=== PATIENT | male | born 1945 | race Caucasian/White ===

== ENCOUNTER 2020-03-04 11:11 | Inpatient (IN) | payer OTHER ==
[2020-03-04] MEDS ORDERED: SODIUM CHLORIDE 1,000 ML IV STA (11:56)
[2020-03-04 12:49] LABS: BASO % 0.2 % (0-2.0); HEMATOCRIT 21.4 % (35.4-49); LYMPH % 9.8 % (8-40); MCH 31.6 pg (25.7-33.7); MCHC 32.8 g/dl (32.0-35.9); MEAN CELL VOLUME 96.5 fl (80-96); MEAN PLT VOLUME 8.3 fl (7.5-11.1); MONO % 4.6 % (3.8-10.2); NEUT % 85.4 % (42.8-82.8); PLATELET COUNT 402 K/MM3 (134-434); RBC 2.21 M/mm3 (4.00-5.60); RDW 18.4 % (11.9-15.9); WHITE BLOOD COUNT 5.2 K/mm3 (4.0-10.0)
[2020-03-04 12:54] LABS: INR 1.4 (0.83-1.09); PROTHROMBIN TIME (PATIENT) 17.1 SEC (9.7-13.0)
[2020-03-04 12:56] LABS: ACTIVATED PTT 28.7 SECONDS (25.2-36.5)
[2020-03-04] MEDS ORDERED: VANCOMYCIN 1 GM in D5W (PRE-DOCKED) 1,000 MG/250 ML IVPB ONE (13:00)
[2020-03-04] MEDS ORDERED: PIPERACILLIN/TAZOB 4.5 GM 4.5 GM in DEXTROSE 5%-WATER 100 ML IVPB ONE (13:01)
[2020-03-04 13:11] LABS: CALCIUM 7.8 mg/dL (8.5-10.1); VENOUS BASE EXCESS -6.7 mmol/L (-2-2); VENOUS O2 SATURATION 15.5 % (70-80); VENOUS PCO2 50.6 mmHg (38-52); VENOUS PH 7.224 (7.310-7.410)
[2020-03-04 13:12] LABS: ALBUMIN 2.4 g/dl (3.4-5.0)
[2020-03-04 13:15] LABS: CREATININE 4.9 mg/dL (0.55-1.3)
[2020-03-04 13:16] LABS: BILIRUBIN,TOTAL 0.9 mg/dL (0.2-1); TOT PROT 6.8 g/dl (6.4-8.2)
[2020-03-04 13:27] LABS: POTASSIUM 6.7 mmol/L (3.5-5.1)
[2020-03-04 13:28] LABS: BLOOD UREA NITROGEN 125.5 mg/dL (7-18)
[2020-03-04] MEDS ORDERED: INSULIN REGULAR HUMAN 100 UNITS/ML *VIAL IVPUSH ONE (13:31)
[2020-03-04] MEDS ORDERED: DEXTROSE 50%-WATER - 25 GM/50 ML VIAL IVPUSH ONE ×3 (13:31→23:37)
[2020-03-04] MEDS ORDERED: SODIUM ZIRCONIUM CYCLOSILICATE (LOKELMA) 5 GM PACKET PO SCH (13:37)
[2020-03-04] MEDS ORDERED: PIPERACILLIN/TAZOB 4.5 GM 4.5 GM/100 ML BAG IVPB ONE (13:38)
[2020-03-04] MEDS ORDERED: VANCOMYCIN 1 GRAM (PRE-DOCKED) 1,000 MG/250 ML BAG IVPB ONE (13:39)
[2020-03-04] MEDS ORDERED: SODIUM ZIRCONIUM CYCLOSILICATE (LOKELMA) 5 GM PACKET PO ONE (13:45)
[2020-03-04] MEDS ORDERED: DEXTROSE 50%-WATER 25 GM/50 ML DISP.SYRIN ONE ×2 (13:53→23:01)
[2020-03-04] MEDS ORDERED: SODIUM ZIRCONIUM CYCLOSILICATE (LOKELMA) 10 GM PACKET PO ONE (14:00)
[2020-03-04] MEDS ORDERED: CALCIUM GLUCONATE 10% - 1,000 MG/10 ML VIAL IVPB ONE (15:01)
[2020-03-04] MEDS ORDERED: CALCIUM GLUCONATE 10% - 1,000 MG/10 ML VIAL ONE (15:18)
[2020-03-04] MEDS ORDERED: DEXTROSE 5%-0.45% SALINE 1,000 ML IV SCH ×2 (15:45→17:29)
[2020-03-04] MEDS ORDERED: SODIUM BICARBONATE 650 MG TABLET PO ONE (15:55)
[2020-03-04] MEDS ORDERED: ALBUTEROL SO4 0.083% IH SOL 2.5 MG/3 ML VIAL.NEB. NEB ONE (15:57)
[2020-03-04 16:19] LABS: EPI CELLS 4 /uL (0-25.1); HYALINE CASTS 1 /uL (0-3.1); URINE APPEARANCE CLEAR; URINE BACTERIA 8 /uL (0-1359); URINE BILIRUBIN NEGATIVE (NEGATIVE); URINE COLOR YELLOW; URINE GLUCOSE (UA) NEGATIVE (NEGATIVE); URINE KETONE NEGATIVE (NEGATIVE); URINE LEUK ESTERASE NEGATIVE (NEGATIVE); URINE NITRITE NEGATIVE (NEGATIVE); URINE PROTEIN 1+ (NEGATIVE); URINE UROBILINOGEN 0.2 mg/dL (0.2-1.0); URINE WBC 5 /uL (0-25.8)
[2020-03-04 16:59] LABS: URINE RBC 40.3 /uL (0-23.9)
[2020-03-04 17:03] LABS: MAGNESIUM 1.8 mg/dL (1.8-2.4)
[2020-03-04 17:06] LABS: PHOSPHOROUS 7.7 mg/dL (2.5-4.9)
[2020-03-04 17:10] LABS: N-TERMINAL BNP 4277.5 pg/ml (5-450)
[2020-03-04 22:47] LABS: POTASSIUM 4.7 mmol/L (3.5-5.1)
[2020-03-04 22:49] LABS: CALCIUM 7.6 mg/dL (8.5-10.1)
[2020-03-04 22:50] LABS: ALBUMIN 2.2 g/dl (3.4-5.0)
[2020-03-04 22:53] LABS: CREATININE 4.7 mg/dL (0.55-1.3)
[2020-03-04 22:55] LABS: BILIRUBIN,TOTAL 0.8 mg/dL (0.2-1)
[2020-03-04 23:15] LABS: EPI CELLS 20 /uL (0-25.1); HYALINE CASTS 14 /uL (0-3.1); URINE APPEARANCE CLOUDY; URINE BACTERIA 5 /uL (0-1359); URINE BILIRUBIN NEGATIVE (NEGATIVE); URINE COLOR YELLOW; URINE GLUCOSE (UA) NEGATIVE (NEGATIVE); URINE KETONE NEGATIVE (NEGATIVE); URINE LEUK ESTERASE NEGATIVE (NEGATIVE); URINE NITRITE NEGATIVE (NEGATIVE); URINE PROTEIN 1+ (NEGATIVE); URINE RBC 6 /uL (0-23.9); URINE UROBILINOGEN 0.2 mg/dL (0.2-1.0); URINE WBC 5 /uL (0-25.8)
[2020-03-04] MEDS ORDERED: PANTOPRAZOLE SODIUM 40 MG VIAL ONE (23:36)
[2020-03-04] MEDS: PANTOPRAZOLE SODIUM 40 MG VIAL IVPUSH SCH (23:40)
[2020-03-05 06:13] LABS: BASO % 0.2 % (0-2.0); HEMATOCRIT 24.8 % (35.4-49); HEMOGLOBIN 8.2 GM/dL (11.7-16.9); LYMPH % 6.6 % (8-40); MEAN CELL VOLUME 93.7 fl (80-96); MEAN PLT VOLUME 7.5 fl (7.5-11.1); MONO % 6.2 % (3.8-10.2); PLATELET COUNT 338 K/MM3 (134-434); RBC 2.65 M/mm3 (4.00-5.60); RDW 17.5 % (11.9-15.9); WHITE BLOOD COUNT 7.1 K/mm3 (4.0-10.0)
[2020-03-05 06:34] LABS: POTASSIUM 4.8 mmol/L (3.5-5.1)
[2020-03-05 06:36] LABS: CALCIUM 7.6 mg/dL (8.5-10.1)
[2020-03-05 06:37] LABS: ALBUMIN 2.2 g/dl (3.4-5.0); MAGNESIUM 2.1 mg/dL (1.8-2.4)
[2020-03-05 06:40] LABS: CREATININE 4.7 mg/dL (0.55-1.3)
[2020-03-05 06:41] LABS: BILIRUBIN,TOTAL 0.8 mg/dL (0.2-1); TOT PROT 6.2 g/dl (6.4-8.2)
[2020-03-05 06:52] LABS: BLOOD UREA NITROGEN 118.4 mg/dL (7-18)
[2020-03-05] MEDS ORDERED: DEXTROSE 5%-0.45% SALINE 1,000 ML IV SCH (09:30)
[2020-03-05] MEDS: PANTOPRAZOLE SODIUM 40 MG VIAL IVPUSH SCH ×2 (10:22→21:37)
[2020-03-05] MEDS ORDERED: AMINO ACIDS 4.25%/D5W 1,000 ML IV SCH (13:00)
[2020-03-05] MEDS ORDERED: ONDANSETRON 4 MG/2 ML VIAL IVPUSH PRN (13:20)
[2020-03-05] MEDS ORDERED: PT OWN MED DRAWER 7, Y5N ONE ×3 (14:26→21:26)
[2020-03-05] MEDS: ALBUMIN HUMAN 25% 12.5 GM/50 ML VIAL IVPB SCH ×2 (15:14→21:35)
[2020-03-05] MEDS: AMINO ACIDS 4.25%/D5W 1,000 ML IV SCH (16:42)
[2020-03-05] MEDS: ACETAMINOPHEN 325 MG TABLET (FP) PO PRN (16:43)
[2020-03-05] MEDS ORDERED: PIPERACILLIN/TAZOBACTAM 2.25 GM VIAL IVPB ONE (17:51)
[2020-03-05] MEDS ORDERED: DEXTROSE 5%-WATER - 50 ML IVPB ONE (17:51)
[2020-03-05] MEDS: MIRTAZAPINE 15 MG TABLET (FP) PO SCH (18:20)
[2020-03-05] MEDS: PIPERACILLIN/TAZOB 2.25 GM 2.25 GM in DEXTROSE 5%-WATER - 50 ML IVPB SCH (18:21)
[2020-03-05] MEDS ORDERED: TAZOB IVPB SCH (19:15)
[2020-03-05] MEDS ORDERED: DEXTROSE 5% IVPB SCH (19:15)
[2020-03-05] MEDS ORDERED: PIPERACILLIN IVPB SCH (19:15)
[2020-03-05] MEDS ORDERED: WATER IVPB SCH (19:15)
[2020-03-05] MEDS ORDERED: APIXABAN 5 MG TABLET PO SCH (22:00)
[2020-03-06] MEDS ORDERED: PIPERACILLIN/TAZOBACTAM 2.25 GM VIAL IVPB ONE ×4 (01:04→16:58)
[2020-03-06] MEDS ORDERED: DEXTROSE 5%-WATER - 0 ML IVPB ONE (01:04)
[2020-03-06] MEDS ORDERED: DEXTROSE 5%-WATER - 50 ML IVPB ONE ×3 (01:06→16:58)
[2020-03-06] MEDS: PIPERACILLIN/TAZOB 2.25 GM 2.25 GM in DEXTROSE 5%-WATER - 50 ML IVPB SCH ×3 (01:32→17:32)
[2020-03-06 07:28] LABS: INR 1.38 (0.83-1.09); PROTHROMBIN TIME (PATIENT) 16.6 SEC (9.7-13.0)
[2020-03-06 07:41] LABS: POTASSIUM 4.4 mmol/L (3.5-5.1)
[2020-03-06 07:51] LABS: ALBUMIN 2.5 g/dl (3.4-5.0); CALCIUM 7.8 mg/dL (8.5-10.1)
[2020-03-06 07:54] LABS: CREATININE 4.4 mg/dL (0.55-1.3)
[2020-03-06 07:55] LABS: BILIRUBIN,TOTAL 0.7 mg/dL (0.2-1); TOT PROT 6.1 g/dl (6.4-8.2)
[2020-03-06 08:00] LABS: BASO % 0.1 % (0-2.0); EOS % 0.1 % (0-4.5); HEMATOCRIT 24.8 % (35.4-49); HEMOGLOBIN 8.1 GM/dL (11.7-16.9); LYMPH % 5.9 % (8-40); MCH 30.4 pg (25.7-33.7); MCHC 32.6 g/dl (32.0-35.9); MEAN CELL VOLUME 93.4 fl (80-96); MEAN PLT VOLUME 7.8 fl (7.5-11.1); MONO % 5.1 % (3.8-10.2); NEUT % 88.8 % (42.8-82.8); PLATELET COUNT 348 K/MM3 (134-434); RBC 2.66 M/mm3 (4.00-5.60); RDW 17.8 % (11.9-15.9); WHITE BLOOD COUNT 8.3 K/mm3 (4.0-10.0)
[2020-03-06 08:03] LABS: BLOOD UREA NITROGEN 125.2 mg/dL (7-18)
[2020-03-06] MEDS: AMINO ACIDS 4.25%/D5W 1,000 ML IV SCH (08:15)
[2020-03-06] MEDS: PANTOPRAZOLE SODIUM 40 MG VIAL IVPUSH SCH ×2 (09:43→21:34)
[2020-03-06] MEDS: MIRTAZAPINE 15 MG TABLET (FP) PO SCH (09:44)
[2020-03-06] MEDS: amLODIPine BESYLATE 10 MG TABLET (FP) PO SCH (09:44)
[2020-03-06] MEDS ORDERED: FUROSEMIDE 40 MG/4 ML INJECTABLE VIAL IVPUSH ONE (12:15)
[2020-03-06] MEDS: ACETAMINOPHEN 325 MG TABLET (FP) PO PRN (13:20)
[2020-03-06] MEDS ORDERED: DEXTROSE 50%-WATER - 25 GM/50 ML VIAL IVPUSH ONE (21:13)
[2020-03-06] MEDS ORDERED: DEXTROSE 50%-WATER 25 GM/50 ML DISP.SYRIN ONE (21:26)
[2020-03-07] MEDS ORDERED: PIPERACILLIN/TAZOBACTAM 2.25 GM VIAL IVPB ONE ×3 (02:11→17:29)
[2020-03-07] MEDS: PIPERACILLIN/TAZOB 2.25 GM 2.25 GM in DEXTROSE 5%-WATER - 50 ML IVPB SCH ×3 (02:37→17:30)
[2020-03-07] MEDS ORDERED: DEXTROSE 50%-WATER - 25 GM/50 ML VIAL IVPUSH ONE (06:18)
[2020-03-07] MEDS ORDERED: DEXTROSE 50%-WATER 25 GM/50 ML DISP.SYRIN ONE (06:26)
[2020-03-07] MEDS ORDERED: DEXTROSE 5%-WATER - 50 ML IVPB ONE ×2 (09:02→17:29)
[2020-03-07] MEDS: PANTOPRAZOLE SODIUM 40 MG VIAL IVPUSH SCH ×2 (09:15→21:59)
[2020-03-07] MEDS: amLODIPine BESYLATE 10 MG TABLET (FP) PO SCH (09:15)
[2020-03-07] MEDS: MIRTAZAPINE 15 MG TABLET (FP) PO SCH (09:16)
[2020-03-07 11:28] LABS: BASO % 0.3 % (0-2.0); EOS % 0.2 % (0-4.5); HEMATOCRIT 26.3 % (35.4-49); HEMOGLOBIN 8.7 GM/dL (11.7-16.9); MCH 31.3 pg (25.7-33.7); MCHC 33.3 g/dl (32.0-35.9); MEAN PLT VOLUME 8.1 fl (7.5-11.1); MONO % 3.2 % (3.8-10.2); NEUT % 90.3 % (42.8-82.8); PLATELET COUNT 376 K/MM3 (134-434); RBC 2.79 M/mm3 (4.00-5.60); RDW 17.6 % (11.9-15.9)
[2020-03-07 12:03] LABS: POTASSIUM 3.9 mmol/L (3.5-5.1)
[2020-03-07 12:12] LABS: ALBUMIN 2.4 g/dl (3.4-5.0)
[2020-03-07 12:14] LABS: CALCIUM 8.1 mg/dL (8.5-10.1)
[2020-03-07 12:16] LABS: CREATININE 4.5 mg/dL (0.55-1.3)
[2020-03-07 12:17] LABS: BILIRUBIN,TOTAL 0.7 mg/dL (0.2-1); TOT PROT 6.1 g/dl (6.4-8.2)
[2020-03-07 12:32] LABS: BLOOD UREA NITROGEN 132.8 mg/dL (7-18)
[2020-03-07] MEDS: ALBUMIN HUMAN 25% 100 ML VIAL IVPB SCH ×2 (17:28→22:00)
[2020-03-07 17:33] LABS: BF WBC & OTHER NUCLEATED CELLS 123 /mm3
[2020-03-07 21:34] LABS: BODY FLUID MACROPHAGES 26 %; BODY FLUID MESOTHELIAL 1 %
[2020-03-07] MEDS ORDERED: PT OWN MED DRAWER 7, Y5N ONE (21:54)
[2020-03-07] MEDS: SODIUM BICARBONATE 650 MG TABLET PO SCH (21:59)
[2020-03-08] MEDS ORDERED: DEXTROSE 5%-WATER - 50 ML IVPB ONE ×2 (02:31→09:13)
[2020-03-08] MEDS ORDERED: PIPERACILLIN/TAZOBACTAM 2.25 GM VIAL IVPB ONE ×2 (02:31→09:13)
[2020-03-08] MEDS: PIPERACILLIN/TAZOB 2.25 GM 2.25 GM in DEXTROSE 5%-WATER - 50 ML IVPB SCH ×2 (02:35→09:44)
[2020-03-08 07:29] LABS: POTASSIUM 3.8 mmol/L (3.5-5.1)
[2020-03-08 07:32] LABS: ALBUMIN 2.4 g/dl (3.4-5.0); CALCIUM 8.1 mg/dL (8.5-10.1); MAGNESIUM 1.8 mg/dL (1.8-2.4)
[2020-03-08 07:35] LABS: PHOSPHOROUS 7.9 mg/dL (2.5-4.9)
[2020-03-08 07:36] LABS: CREATININE 4.5 mg/dL (0.55-1.3)
[2020-03-08 07:37] LABS: BILIRUBIN,TOTAL 0.7 mg/dL (0.2-1)
[2020-03-08 07:39] LABS: BASO % 0.2 % (0-2.0); EOS % 0.6 % (0-4.5); HEMATOCRIT 24.2 % (35.4-49); LYMPH % 4.9 % (8-40); MCH 30.8 pg (25.7-33.7); MCHC 33.2 g/dl (32.0-35.9); MEAN CELL VOLUME 92.8 fl (80-96); NEUT % 90.3 % (42.8-82.8); PLATELET COUNT 358 K/MM3 (134-434); RBC 2.61 M/mm3 (4.00-5.60); WHITE BLOOD COUNT 11.4 K/mm3 (4.0-10.0)
[2020-03-08 07:46] LABS: BLOOD UREA NITROGEN 134.6 mg/dL (7-18)
[2020-03-08] MEDS: APIXABAN 2.5 MG TABLET PO SCH ×2 (09:44→21:04)
[2020-03-08] MEDS: amLODIPine BESYLATE 10 MG TABLET (FP) PO SCH (09:44)
[2020-03-08] MEDS: PANTOPRAZOLE SODIUM 40 MG VIAL IVPUSH SCH ×2 (09:44→21:04)
[2020-03-08] MEDS: MIRTAZAPINE 15 MG TABLET (FP) PO SCH (09:44)
[2020-03-08] MEDS: SODIUM BICARBONATE 650 MG TABLET PO SCH ×2 (09:45→21:04)
[2020-03-08] MEDS ORDERED: FAMOTIDINE 20 MG TABLET PO SCH (18:26)
[2020-03-08] MEDS ORDERED: FAMOTIDINE 20 MG TABLET PO ONE (18:42)
[2020-03-08] MEDS: ACETAMINOPHEN 325 MG TABLET (FP) PO PRN (18:48)
[2020-03-09] MEDS ORDERED: ONDANSETRON 4 MG/2 ML VIAL IVPUSH PRN (00:10)
[2020-03-09 08:19] LABS: BASO % 0.4 % (0-2.0); EOS % 0.8 % (0-4.5); HEMATOCRIT 27.1 % (35.4-49); HEMOGLOBIN 8.8 GM/dL (11.7-16.9); LYMPH % 5.6 % (8-40); MCH 30.3 pg (25.7-33.7); MCHC 32.5 g/dl (32.0-35.9); MEAN CELL VOLUME 93.4 fl (80-96); MONO % 3.9 % (3.8-10.2); NEUT % 89.3 % (42.8-82.8); PLATELET COUNT 416 K/MM3 (134-434); RDW 17.8 % (11.9-15.9); WHITE BLOOD COUNT 12.4 K/mm3 (4.0-10.0)
[2020-03-09 08:41] LABS: POTASSIUM 3.8 mmol/L (3.5-5.1)
[2020-03-09 08:47] LABS: ALBUMIN 2.5 g/dl (3.4-5.0); CALCIUM 8.4 mg/dL (8.5-10.1)
[2020-03-09 08:50] LABS: CREATININE 4.6 mg/dL (0.55-1.3); PHOSPHOROUS 7.2 mg/dL (2.5-4.9)
[2020-03-09 08:51] LABS: BILIRUBIN,TOTAL 0.5 mg/dL (0.2-1)
[2020-03-09 08:52] LABS: TOT PROT 6.2 g/dl (6.4-8.2)
[2020-03-09] MEDS: PANTOPRAZOLE SODIUM 40 MG VIAL IVPUSH SCH ×2 (10:39→21:23)
[2020-03-09] MEDS: APIXABAN 2.5 MG TABLET PO SCH ×2 (10:39→21:23)
[2020-03-09] MEDS: SODIUM BICARBONATE 650 MG TABLET PO SCH ×2 (10:39→21:23)
[2020-03-09] MEDS: amLODIPine BESYLATE 10 MG TABLET (FP) PO SCH (13:16)
[2020-03-09] MEDS: MIRTAZAPINE 15 MG TABLET (FP) PO SCH (21:23)
[2020-03-10 08:20] LABS: POTASSIUM 3.8 mmol/L (3.5-5.1)
[2020-03-10 08:34] LABS: CALCIUM 8.7 mg/dL (8.5-10.1)
[2020-03-10 08:38] LABS: CREATININE 4.5 mg/dL (0.55-1.3)
[2020-03-10 09:27] LABS: BLOOD UREA NITROGEN 140.1 mg/dL (7-18)
[2020-03-10] MEDS: PANTOPRAZOLE SODIUM 40 MG VIAL IVPUSH SCH ×2 (10:20→21:05)
[2020-03-10] MEDS: SODIUM BICARBONATE 650 MG TABLET PO SCH ×2 (10:20→21:05)
[2020-03-10 10:36] LABS: ALBUMIN 2.5 g/dl (3.4-5.0)
[2020-03-10 10:40] LABS: PHOSPHOROUS 6.6 mg/dL (2.5-4.9)
[2020-03-10 10:41] LABS: BILIRUBIN,TOTAL 0.5 mg/dL (0.2-1); TOT PROT 6.2 g/dl (6.4-8.2)
[2020-03-10 11:54] LABS: BASO % 0.1 % (0-2.0); EOS % 0.1 % (0-4.5); HEMATOCRIT 26.6 % (35.4-49); HEMOGLOBIN 8.6 GM/dL (11.7-16.9); LYMPH % 4.5 % (8-40); MCH 30.3 pg (25.7-33.7); MCHC 32.2 g/dl (32.0-35.9); MEAN CELL VOLUME 94.1 fl (80-96); MEAN PLT VOLUME 7.8 fl (7.5-11.1); MONO % 3.9 % (3.8-10.2); NEUT % 91.4 % (42.8-82.8); PLATELET COUNT 395 K/MM3 (134-434); RBC 2.83 M/mm3 (4.00-5.60); RDW 16.9 % (11.9-15.9); WHITE BLOOD COUNT 16.1 K/mm3 (4.0-10.0)
[2020-03-10] MEDS: amLODIPine BESYLATE 10 MG TABLET (FP) PO SCH (12:29)
[2020-03-10] MEDS: D5-1/2NS+10 MEQ KCL - 10 MEQ/1,000 ML INFUS.BAG IV SCH (12:55)
[2020-03-10] MEDS: APIXABAN 2.5 MG TABLET PO SCH ×2 (16:57→21:06)
[2020-03-10] MEDS: MIRTAZAPINE 15 MG TABLET (FP) PO SCH (21:06)
[2020-03-11] MEDS: D5-1/2NS+10 MEQ KCL - 10 MEQ/1,000 ML INFUS.BAG IV SCH ×2 (06:03→14:59)
[2020-03-11 08:45] LABS: BASO % 0.2 % (0-2.0); EOS % 0.1 % (0-4.5); HEMOGLOBIN 8.7 GM/dL (11.7-16.9); LYMPH % 4.8 % (8-40); MCH 30.1 pg (25.7-33.7); MCHC 32.2 g/dl (32.0-35.9); MEAN CELL VOLUME 93.5 fl (80-96); MEAN PLT VOLUME 7.9 fl (7.5-11.1); MONO % 3.5 % (3.8-10.2); NEUT % 91.4 % (42.8-82.8); PLATELET COUNT 374 K/MM3 (134-434); RBC 2.89 M/mm3 (4.00-5.60); RDW 16.9 % (11.9-15.9); WHITE BLOOD COUNT 13.1 K/mm3 (4.0-10.0)
[2020-03-11 09:01] LABS: POTASSIUM 3.6 mmol/L (3.5-5.1)
[2020-03-11 09:08] LABS: ALBUMIN 2.4 g/dl (3.4-5.0)
[2020-03-11 09:11] LABS: CALCIUM 8.2 mg/dL (8.5-10.1); CREATININE 4.3 mg/dL (0.55-1.3); PHOSPHOROUS 6.4 mg/dL (2.5-4.9)
[2020-03-11 09:13] LABS: BILIRUBIN,TOTAL 0.6 mg/dL (0.2-1); TOT PROT 6.2 g/dl (6.4-8.2)
[2020-03-11] MEDS: amLODIPine BESYLATE 10 MG TABLET (FP) PO SCH (09:16)
[2020-03-11] MEDS: SODIUM BICARBONATE 650 MG TABLET PO SCH ×2 (09:16→22:26)
[2020-03-11] MEDS: APIXABAN 2.5 MG TABLET PO SCH ×2 (09:17→22:26)
[2020-03-11] MEDS: PANTOPRAZOLE SODIUM 40 MG VIAL IVPUSH SCH ×2 (09:17→22:26)
[2020-03-11 09:26] LABS: BLOOD UREA NITROGEN 134.8 mg/dL (7-18)
[2020-03-11 10:31] LABS: ANISOCYTOSIS 1+; MACROCYTOSIS 1+; PLATELET ESTIMATE NORMAL; TARGET CELLS 1+; TOXIC GRANULATION 2+
[2020-03-11] MEDS ORDERED: FLU VACCINE (FLULAVAL) PF 60 MCG/0.5 ML SYRINGE 2020-2021 IM ONE (11:00)
[2020-03-11] MEDS ORDERED: SODIUM CHLORIDE 250 ML IV PRN (11:01)
[2020-03-11] MEDS ORDERED: PNEUMOC 13-VAL CONJ-DIP CRM/PF 0.5 ML DISP.SYRIN IM ONE (15:48)
[2020-03-11] MEDS: MIRTAZAPINE 15 MG TABLET (FP) PO SCH (22:25)
[2020-03-12] MEDS: D5-1/2NS+10 MEQ KCL - 10 MEQ/1,000 ML INFUS.BAG IV SCH ×3 (01:52→17:12)
[2020-03-12 06:53] LABS: BASO % 0.2 % (0-2.0); EOS % 0.1 % (0-4.5); HEMATOCRIT 25.6 % (35.4-49); HEMOGLOBIN 8.1 GM/dL (11.7-16.9); LYMPH % 3.8 % (8-40); MCHC 31.6 g/dl (32.0-35.9); MEAN CELL VOLUME 94.9 fl (80-96); NEUT % 91.9 % (42.8-82.8); PLATELET COUNT 330 K/MM3 (134-434); RDW 16.9 % (11.9-15.9); WHITE BLOOD COUNT 13.6 K/mm3 (4.0-10.0)
[2020-03-12 07:31] LABS: POTASSIUM 3.4 mmol/L (3.5-5.1)
[2020-03-12 07:36] LABS: ALBUMIN 2.4 g/dl (3.4-5.0)
[2020-03-12 07:37] LABS: BILIRUBIN,TOTAL 0.4 mg/dL (0.2-1); CALCIUM 8.8 mg/dL (8.5-10.1); MAGNESIUM 2.1 mg/dL (1.8-2.4); TOT PROT 6.4 g/dl (6.4-8.2)
[2020-03-12 07:39] LABS: CREATININE 4.1 mg/dL (0.55-1.3); PHOSPHOROUS 6.5 mg/dL (2.5-4.9)
[2020-03-12 07:42] LABS: BLOOD UREA NITROGEN 133.7 mg/dL (7-18)
[2020-03-12] MEDS: APIXABAN 2.5 MG TABLET PO SCH ×2 (09:13→21:12)
[2020-03-12] MEDS: SODIUM BICARBONATE 650 MG TABLET PO SCH ×2 (09:13→21:12)
[2020-03-12] MEDS: amLODIPine BESYLATE 10 MG TABLET (FP) PO SCH (09:13)
[2020-03-12] MEDS: PANTOPRAZOLE SODIUM 40 MG VIAL IVPUSH SCH ×2 (09:13→21:12)
[2020-03-12 12:18] LABS: ANISOCYTOSIS 1+; MACROCYTOSIS 1+; PLATELET ESTIMATE NORMAL
[2020-03-12] MEDS ORDERED: POTASSIUM CHLORIDE TABS 20 MEQ TABLET.ER (FP) PO ONE (13:23)
[2020-03-12] MEDS ORDERED: SODIUM CHLORIDE 250 ML IV PRN (15:09)
[2020-03-12] MEDS: ACETAMINOPHEN 325 MG TABLET (FP) PO PRN (16:36)
[2020-03-12] MEDS: MIRTAZAPINE 15 MG TABLET (FP) PO SCH (21:12)
[2020-03-13 06:38] LABS: BASO % 0.3 % (0-2.0); EOS % 0.1 % (0-4.5); HEMATOCRIT 21.3 % (35.4-49); LYMPH % 5.2 % (8-40); MCH 30.8 pg (25.7-33.7); MCHC 32.7 g/dl (32.0-35.9); MEAN CELL VOLUME 94.1 fl (80-96); MEAN PLT VOLUME 8.1 fl (7.5-11.1); MONO % 3.3 % (3.8-10.2); NEUT % 91.1 % (42.8-82.8); PLATELET COUNT 307 K/MM3 (134-434); RBC 2.27 M/mm3 (4.00-5.60); RDW 16.9 % (11.9-15.9); WHITE BLOOD COUNT 9.6 K/mm3 (4.0-10.0)
[2020-03-13 06:46] LABS: POTASSIUM 4.2 mmol/L (3.5-5.1)
[2020-03-13 06:50] LABS: CALCIUM 8.5 mg/dL (8.5-10.1)
[2020-03-13 06:51] LABS: ALBUMIN 2.2 g/dl (3.4-5.0)
[2020-03-13 06:54] LABS: PHOSPHOROUS 6.3 mg/dL (2.5-4.9)
[2020-03-13 06:56] LABS: BILIRUBIN,TOTAL 0.4 mg/dL (0.2-1); TOT PROT 5.9 g/dl (6.4-8.2)
[2020-03-13 07:02] LABS: BLOOD UREA NITROGEN 131.6 mg/dL (7-18)
[2020-03-13] MEDS ORDERED: SODIUM CHLORIDE 0.45% 1,000 ML IV SCH (12:00)
[2020-03-13] MEDS: PANTOPRAZOLE SODIUM 40 MG VIAL IVPUSH SCH ×2 (12:29→21:22)
[2020-03-13] MEDS: SODIUM BICARBONATE 650 MG TABLET PO SCH ×2 (12:30→21:22)
[2020-03-13 12:33] VITALS: BMI 20.3
[2020-03-13] MEDS: APIXABAN 2.5 MG TABLET PO SCH (12:39)
[2020-03-13 14:22] LABS: ANISOCYTOSIS 1+; MACROCYTOSIS 0; PLATELET ESTIMATE NORMAL
[2020-03-13] MEDS: amLODIPine BESYLATE 10 MG TABLET (FP) PO SCH (14:31)
[2020-03-13] MEDS: MIRTAZAPINE 15 MG TABLET (FP) PO SCH (21:22)
[2020-03-13 22:15] LABS: HEP B CORE AB, TOT Negative (Negative)
[2020-03-13] MEDS ORDERED: DEXTROSE 5%-0.45% SALINE 1,000 ML IV SCH (22:15)
[2020-03-14] MEDS: ACETAMINOPHEN 325 MG TABLET (FP) PO PRN (06:22)
[2020-03-14 06:24] LABS: BASO % 0.4 % (0-2.0); HEMATOCRIT 19.3 % (35.4-49); LYMPH % 6.4 % (8-40); MCH 30.5 pg (25.7-33.7); MCHC 32.4 g/dl (32.0-35.9); MEAN CELL VOLUME 94.1 fl (80-96); MONO % 4.2 % (3.8-10.2); PLATELET COUNT 267 K/MM3 (134-434); RBC 2.05 M/mm3 (4.00-5.60); RDW 16.7 % (11.9-15.9); WHITE BLOOD COUNT 9.9 K/mm3 (4.0-10.0)
[2020-03-14 07:23] LABS: POTASSIUM 3.9 mmol/L (3.5-5.1)
[2020-03-14 08:02] LABS: ALBUMIN 2.4 g/dl (3.4-5.0)
[2020-03-14 08:03] LABS: CALCIUM 8.6 mg/dL (8.5-10.1)
[2020-03-14 08:04] LABS: BILIRUBIN,TOTAL 0.6 mg/dL (0.2-1); CREATININE 3.8 mg/dL (0.55-1.3)
[2020-03-14 08:05] LABS: TOT PROT 6.2 g/dl (6.4-8.2)
[2020-03-14 08:17] LABS: BLOOD UREA NITROGEN 136.3 mg/dL (7-18)
[2020-03-14 09:22] LABS: PLATELET ESTIMATE NORMAL
[2020-03-14] MEDS: amLODIPine BESYLATE 10 MG TABLET (FP) PO SCH (09:28)
[2020-03-14] MEDS: SODIUM BICARBONATE 650 MG TABLET PO SCH ×2 (09:28→21:49)
[2020-03-14] MEDS: PANTOPRAZOLE SODIUM 40 MG VIAL IVPUSH SCH ×2 (09:28→21:49)
[2020-03-14 10:30] LABS: HEMOGLOBIN 6.3 GM/dL (11.7-16.9)
[2020-03-14] MEDS: MEGESTROL ACETATE 40 MG TABLET PO SCH (10:50)
[2020-03-14] MEDS: AMINO ACIDS 4.25%/D5W 1,000 ML IV SCH (10:51)
[2020-03-14] MEDS ORDERED: SODIUM CHLORIDE 250 ML IV PRN (11:19)
[2020-03-14] MEDS ORDERED: LIDOCAINE HCL 1%, 10 MG/ML (50 mL VIAL) SQ ONE (14:40)
[2020-03-14] MEDS ORDERED: LIDOCAINE HCL 1%, 10 MG/ML (20ML VIAL) ONE (14:41)
[2020-03-14] MEDS ORDERED: PT OWN MED DRAWER 7, Y5N ONE (20:56)
[2020-03-14] MEDS: APIXABAN 2.5 MG TABLET PO SCH (21:49)
[2020-03-14] MEDS: MIRTAZAPINE 15 MG TABLET (FP) PO SCH (21:49)
[2020-03-15] MEDS: ACETAMINOPHEN 325 MG TABLET (FP) PO PRN ×2 (00:34→21:39)
[2020-03-15 06:31] LABS: BASO % 0.1 % (0-2.0); HEMATOCRIT 22.7 % (35.4-49); HEMOGLOBIN 7.6 GM/dL (11.7-16.9); LYMPH % 3.1 % (8-40); MCH 30.7 pg (25.7-33.7); MCHC 33.6 g/dl (32.0-35.9); MEAN CELL VOLUME 91.4 fl (80-96); MEAN PLT VOLUME 8.2 fl (7.5-11.1); MONO % 3.3 % (3.8-10.2); NEUT % 93.5 % (42.8-82.8); PLATELET COUNT 152 K/MM3 (134-434); RBC 2.48 M/mm3 (4.00-5.60); RDW 15.2 % (11.9-15.9)
[2020-03-15 06:48] LABS: POTASSIUM 3.9 mmol/L (3.5-5.1)
[2020-03-15 06:50] LABS: CALCIUM 7.9 mg/dL (8.5-10.1)
[2020-03-15 06:51] LABS: ALBUMIN 2.5 g/dl (3.4-5.0)
[2020-03-15 06:54] LABS: CREATININE 3.5 mg/dL (0.55-1.3)
[2020-03-15 06:56] LABS: BILIRUBIN,TOTAL 0.5 mg/dL (0.2-1)
[2020-03-15] MEDS: amLODIPine BESYLATE 10 MG TABLET (FP) PO SCH (09:39)
[2020-03-15] MEDS: SODIUM BICARBONATE 650 MG TABLET PO SCH ×2 (09:39→21:38)
[2020-03-15] MEDS: MEGESTROL ACETATE 40 MG TABLET PO SCH (09:39)
[2020-03-15] MEDS: APIXABAN 2.5 MG TABLET PO SCH ×2 (09:39→21:38)
[2020-03-15] MEDS: PANTOPRAZOLE SODIUM 40 MG VIAL IVPUSH SCH ×2 (09:39→21:38)
[2020-03-15] MEDS: AMINO ACIDS 4.25%/D5W 1,000 ML IV SCH ×2 (09:42→16:25)
[2020-03-15 11:34] LABS: ANISOCYTOSIS 1+; MACROCYTOSIS 0; PLATELET ESTIMATE DECREASED
[2020-03-15] MEDS ORDERED: SODIUM CHLORIDE 250 ML IV PRN (16:19)
[2020-03-15] MEDS: MIRTAZAPINE 15 MG TABLET (FP) PO SCH (21:38)
[2020-03-16] MEDS: AMINO ACIDS 4.25%/D5W 1,000 ML IV SCH ×2 (06:42→12:08)
[2020-03-16 06:53] LABS: HEMATOCRIT 23.1 % (35.4-49); HEMOGLOBIN 7.8 GM/dL (11.7-16.9); MCH 31.1 pg (25.7-33.7); MEAN CELL VOLUME 91.6 fl (80-96); MEAN PLT VOLUME 8.6 fl (7.5-11.1); PLATELET COUNT 165 K/MM3 (134-434); RBC 2.52 M/mm3 (4.00-5.60); RDW 15.1 % (11.9-15.9); WHITE BLOOD COUNT 15.8 K/mm3 (4.0-10.0)
[2020-03-16 07:08] LABS: POTASSIUM 3.5 mmol/L (3.5-5.1)
[2020-03-16 07:10] LABS: ALBUMIN 2.5 g/dl (3.4-5.0); CALCIUM 7.8 mg/dL (8.5-10.1)
[2020-03-16 07:13] LABS: CREATININE 3.2 mg/dL (0.55-1.3)
[2020-03-16 07:15] LABS: BILIRUBIN,TOTAL 0.5 mg/dL (0.2-1); TOT PROT 6.2 g/dl (6.4-8.2)
[2020-03-16 07:52] LABS: BLOOD UREA NITROGEN 138.2 mg/dL (7-18)
[2020-03-16] MEDS ORDERED: POTASSIUM CHLORIDE TABS 20 MEQ TABLET.ER (FP) PO ONE (08:02)
[2020-03-16 10:01] LABS: PLATELET ESTIMATE NORMAL
[2020-03-16 10:02] LABS: ANISOCYTOSIS 1+; TARGET CELLS 1+; TOXIC GRANULATION 1+
[2020-03-16] MEDS ORDERED: PT OWN MED DRAWER 7, Y5N ONE (11:36)
[2020-03-16] MEDS: MEGESTROL ACETATE 40 MG TABLET PO SCH (12:07)
[2020-03-16] MEDS: amLODIPine BESYLATE 10 MG TABLET (FP) PO SCH (12:07)
[2020-03-16] MEDS: SODIUM BICARBONATE 650 MG TABLET PO SCH ×2 (12:07→22:41)
[2020-03-16] MEDS: PANTOPRAZOLE SODIUM 40 MG VIAL IVPUSH SCH ×2 (12:07→22:41)
[2020-03-16] MEDS: APIXABAN 2.5 MG TABLET PO SCH ×2 (12:07→22:41)
[2020-03-16] MEDS: ACETAMINOPHEN 325 MG TABLET (FP) PO PRN (13:08)
[2020-03-16] MEDS: MIRTAZAPINE 15 MG TABLET (FP) PO SCH (22:41)
[2020-03-17] MEDS: AMINO ACIDS 4.25%/D5W 1,000 ML IV SCH (04:38)
[2020-03-17 07:58] LABS: BASO % 0.3 % (0-2.0); HEMATOCRIT 21.8 % (35.4-49); HEMOGLOBIN 7.3 GM/dL (11.7-16.9); LYMPH % 3.8 % (8-40); MCH 30.8 pg (25.7-33.7); MCHC 33.4 g/dl (32.0-35.9); MEAN CELL VOLUME 92.4 fl (80-96); MONO % 2.5 % (3.8-10.2); NEUT % 93.4 % (42.8-82.8); PLATELET COUNT 133 K/MM3 (134-434); RBC 2.36 M/mm3 (4.00-5.60); RDW 15.3 % (11.9-15.9); WHITE BLOOD COUNT 16.4 K/mm3 (4.0-10.0)
[2020-03-17 08:27] LABS: POTASSIUM 3.8 mmol/L (3.5-5.1)
[2020-03-17 08:32] LABS: ALBUMIN 2.4 g/dl (3.4-5.0); CALCIUM 7.6 mg/dL (8.5-10.1)
[2020-03-17 08:35] LABS: CREATININE 2.9 mg/dL (0.55-1.3)
[2020-03-17 08:37] LABS: BILIRUBIN,TOTAL 0.6 mg/dL (0.2-1); TOT PROT 5.9 g/dl (6.4-8.2)
[2020-03-17 08:48] LABS: BLOOD UREA NITROGEN 149.1 mg/dL (7-18)
[2020-03-17 09:41] LABS: ANISOCYTOSIS 1+; MACROCYTOSIS 0; PLATELET ESTIMATE DECREASED
[2020-03-17] MEDS ORDERED: PT OWN MED DRAWER 7, Y5N ONE (11:57)
[2020-03-17] MEDS: SODIUM BICARBONATE 650 MG TABLET PO SCH ×2 (12:00→21:54)
[2020-03-17] MEDS: APIXABAN 2.5 MG TABLET PO SCH ×2 (12:00→21:54)
[2020-03-17] MEDS: amLODIPine BESYLATE 10 MG TABLET (FP) PO SCH (12:00)
[2020-03-17] MEDS: MEGESTROL ACETATE 40 MG TABLET PO SCH (12:00)
[2020-03-17] MEDS: PANTOPRAZOLE SODIUM 40 MG VIAL IVPUSH SCH ×2 (12:01→21:54)
[2020-03-17] MEDS: DEXTROSE 5%-0.45% SALINE 1,000 ML IV SCH (17:27)
[2020-03-17] MEDS: MIRTAZAPINE 15 MG TABLET (FP) PO SCH (21:54)
[2020-03-18 06:36] LABS: BASO % 0.2 % (0-2.0); HEMATOCRIT 20.4 % (35.4-49); LYMPH % 3.9 % (8-40); MCH 31.1 pg (25.7-33.7); MEAN CELL VOLUME 91.6 fl (80-96); MEAN PLT VOLUME 9.6 fl (7.5-11.1); MONO % 2.8 % (3.8-10.2); NEUT % 93.1 % (42.8-82.8); PLATELET COUNT 127 K/MM3 (134-434); RBC 2.23 M/mm3 (4.00-5.60); RDW 15.2 % (11.9-15.9); WHITE BLOOD COUNT 13.9 K/mm3 (4.0-10.0)
[2020-03-18 06:51] LABS: POTASSIUM 4.1 mmol/L (3.5-5.1)
[2020-03-18 06:53] LABS: CALCIUM 7.3 mg/dL (8.5-10.1)
[2020-03-18 06:54] LABS: ALBUMIN 2.4 g/dl (3.4-5.0); MAGNESIUM 1.8 mg/dL (1.8-2.4)
[2020-03-18 06:59] LABS: BILIRUBIN,TOTAL 0.5 mg/dL (0.2-1); TOT PROT 5.8 g/dl (6.4-8.2)
[2020-03-18 07:30] LABS: BLOOD UREA NITROGEN 160.2 mg/dL (7-18)
[2020-03-18] MEDS: APIXABAN 2.5 MG TABLET PO SCH (09:10)
[2020-03-18] MEDS: MEGESTROL ACETATE 40 MG TABLET PO SCH (09:10)
[2020-03-18] MEDS: PANTOPRAZOLE SODIUM 40 MG VIAL IVPUSH SCH (09:10)
[2020-03-18] MEDS: amLODIPine BESYLATE 10 MG TABLET (FP) PO SCH (09:10)
[2020-03-18] MEDS: SODIUM BICARBONATE 650 MG TABLET PO SCH (09:10)
[2020-03-18 10:46] LABS: HEMOGLOBIN 6.9 GM/dL (11.7-16.9)
[2020-03-18 10:47] LABS: ANISOCYTOSIS 3+; MACROCYTOSIS 1+; PLATELET ESTIMATE DECREASED
[2020-03-18] MEDS ORDERED: SODIUM CHLORIDE 250 ML IV PRN (13:08)
[2020-03-18] MEDS ORDERED: HEPARIN NA (PORCINE) 5,000 UNITS/ML 1ML VIAL IVPUSH ONE ×2 (13:08)
[2020-03-18] MEDS: HEPARIN NA (PORCINE) 5,000 UNITS/ML 1ML VIAL IVPUSH SCH ×2 (14:40→15:40)
[2020-03-18 17:43] VITALS: BP 101/57; PULSE 84; TEMP 94.4
[2020-03-18] MEDS: DEXTROSE 5%-0.45% SALINE 1,000 ML IV SCH (17:45)
[2020-03-18] MEDS: ACETAMINOPHEN 325 MG TABLET (FP) PO PRN (18:01)
[2020-03-18] MEDS ORDERED: NOREPINEPHRINE BITARTRATE 8,000 MCG/500 ML BAG IVPB SCH (19:30)
[2020-03-18 19:36] LABS: ARTERIAL BLD GAS O2 SATURATION 39.6 mmHg (95-98); ARTERIAL BLOOD GAS BASE EXCESS -13.9 mmol/L (-2-2)
[2020-03-18 19:43] LABS: ALLENS TEST POSITIVE
[2020-03-18] MEDS ORDERED: EPINEPHrine/PF 1 MG/1 ML (1:1,000) AMPULE ONE (19:43)
[2020-03-18] MEDS ORDERED: PIPERACILLIN/TAZOB 2.25 GM 2.25 GM in DEXTROSE 5%-WATER - 50 ML IVPB SCH (19:45)
[2020-03-18] MEDS ORDERED: VANCOMYCIN 1 GM in D5W (PRE-DOCKED) 1,000 MG/250 ML IVPB SCH (19:45)
[2020-03-18 20:23] LABS: ARTERIAL BLOOD GAS pH 7.001 (7.350-7.450)
== END 2020-03-18 21:30 | disposition expired | DRG 374 ==
LOC: JER 11:11 → JERBED 15:16 → J4W 03-05 08:18 → J7W 03-09 00:06
PROVIDERS: ATTEND Nurse Practitioner Acute Care
PROC: 0W9G3ZX Drainage of Peritoneal Cavity, Percutaneous Approach, Diagnostic (ICD-10-PCS; principal; 2020-03-11)
PROC: 06HM33Z Insertion of Infusion Device into Right Femoral Vein, Percutaneous Approach (ICD-10-PCS; 2020-03-11)
PROC: B54BZZA Ultrasonography of Right Lower Extremity Veins, Guidance (ICD-10-PCS; 2020-03-11)
PROC: 5A1D70Z Performance of Urinary Filtration, Intermittent, Less than 6 Hours Per Day (ICD-10-PCS; 2020-03-11)
PROC: 06HN33Z Insertion of Infusion Device into Left Femoral Vein, Percutaneous Approach (ICD-10-PCS; 2020-03-14)
PROC: B54CZZA Ultrasonography of Left Lower Extremity Veins, Guidance (ICD-10-PCS; 2020-03-14)
PROC: 06HM33Z Insertion of Infusion Device into Right Femoral Vein, Percutaneous Approach (ICD-10-PCS; 2020-03-18)
PROC: B54BZZA Ultrasonography of Right Lower Extremity Veins, Guidance (ICD-10-PCS; 2020-03-18)
PROC: 0BH17EZ Insertion of Endotracheal Airway into Trachea, Via Natural or Artificial Opening (ICD-10-PCS; 2020-03-18)
DX: C18.9 Malignant neoplasm of colon, unspecified (principal); E43 Unspecified severe protein-calorie malnutrition; K55.059 Acute (reversible) ischemia of intestine, part and extent unspecified; A41.9 Sepsis, unspecified organism; R64 Cachexia; C78.7 Secondary malignant neoplasm of liver and intrahepatic bile duct; C78.6 Secondary malignant neoplasm of retroperitoneum and peritoneum; N17.9 Acute kidney failure, unspecified; E87.2 Acidosis; R18.8 Other ascites; J90 Pleural effusion, not elsewhere classified; N13.30 Unspecified hydronephrosis; E11.9 Type 2 diabetes mellitus without complications; Z79.84 Long term (current) use of oral hypoglycemic drugs; E83.51 Hypocalcemia; E87.5 Hyperkalemia; D64.9 Anemia, unspecified; E03.9 Hypothyroidism, unspecified; Z68.20 Body mass index [BMI] 20.0-20.9, adult; R62.7 Adult failure to thrive; E16.2 Hypoglycemia, unspecified; W19.XXXA Unspecified fall, initial encounter; Y93.89 Activity, other specified; Y92.230 Patient room in hospital as the place of occurrence of the external cause; Y99.8 Other external cause status; E88.09 Other disorders of plasma-protein metabolism, not elsewhere classified; Z20.828 Contact with and (suspected) exposure to other viral communicable diseases; D63.1 Anemia in chronic kidney disease; N18.9 Chronic kidney disease, unspecified
CPT/HCPCS: 36415; 36430; 36511; 36600; 70450-TC; 71045-TC-FY; 74176-TC; 76775-TC; 76942-TC; 80048; 80053; 80061; 81003; 82042; 82150; 82272; 82378; 82436; 82465; 82565; 82607; 82728; 82746; 82803; 82945; 82962; 83540; 83550; 83605; 83615; 83721; 83735; 83880; 83935; 83986; 84100; 84133; 84157; 84300; 84443; 84478; 84484; 85025; 85045; 85610; 85730; 86704; 86706; 86707; 86708; 86709; 86803; 86850; 86900; 86901; 86922; 87040; 87070; 87075; 87086; 87102; 87116; 87205; 87206; 87210; 87340; 88108; 88305-TC; 90670; 93005; 93010; 97116-GP; 97161-GP; 99285-25; C9803; J1644; J8999; P9038; P9047; P9058; Q2036; U0003